=== PATIENT | female | born 1970 | race Caucasian/White ===

== ENCOUNTER → 2020-03-09 11:33 | Outpatient (CLI) | payer BC, SELFPAY ==
[2020-03-09 14:07] LABS: Coronavirus 19 IgG Antibody Positive (Negative); Coronavirus 19 IgM Antibody Negative (Negative)
[2020-03-10 14:01] LABS: Covid-19 Nasal PCR Sendout Lex Positive
== END ==
PROVIDERS: PCP Family Medicine; Visit Provider Nurse Practitioner
DX: U07.1 COVID-19 (principal)
CPT/HCPCS: 86328; U0004

== ENCOUNTER → 2020-03-19 11:47 | Outpatient (CLI) | payer BC, SELFPAY | PROVIDERS: PCP Family Medicine; Visit Provider Nurse Practitioner | DX: Z20.828 Contact with and (suspected) exposure to other viral communicable diseases (principal); U07.1 COVID-19 | CPT/HCPCS: U0003 ==

== ENCOUNTER → 2020-04-02 12:23 | Outpatient (CLI) | payer BC, SELFPAY ==
[2020-04-04 07:29] LABS: Covid-19 Nasal PCR Sendout Lex Not Detected
== END ==
PROVIDERS: PCP Family Medicine; Visit Provider Nurse Practitioner
DX: Z03.818 Encounter for observation for suspected exposure to other biological agents ruled out (principal)
CPT/HCPCS: U0004

== ENCOUNTER → 2021-08-09 12:01 | Outpatient (CLI) | payer BC, SELFPAY | PROVIDERS: PCP Family Medicine; Visit Provider Nurse Practitioner | DX: U07.1 COVID-19 (principal) | CPT/HCPCS: C9803; U0003; U0005 ==

== ENCOUNTER 2021-11-14 10:07 | Emergency (ER) | payer BC, SELFPAY ==
[2021-11-14 10:08] VITALS: BP 123/79; PULSE 76; RESP 16; TEMP 36.9; O2SAT 100; BMI 30.9
--- NOTE | 2021-11-14 10:23 | PC.NURSE ---
at [facility]
--- NOTE | 2021-11-14 10:30 | HMH.EDDIZZ ---
ED Disposition Clinical Impression: Vertigo, peripheral Qualifiers: Laterality: unspecified laterality Qualified Code(s): H81.399 - Other peripheral vertigo, unspecified ear Disposition: Home, Self-Care Condition on Discharge: Fair Instructions: Vertigo, DI for Benign Paroxysmal Positional Vertigo Additional Instructions: Return immediately to the emergency department if you develop any new symptoms such as slurred speech or weakness in your arms or legs or face. Also come back to the emergency department if your voice changes in any way. Also, if you develop a headache, return to the emergency department immediately. Follow-up with your primary care physician and or an clinical research scientist within 3 to 4 days if your symptoms do not improve. Prescriptions: Scopolamine 1 each TD Q3D PRN #2 patch PRN Reason: Vertigo Transmission Status: Pending to [facility] Referrals: Bret Chavez MD [Primary Care Provider] - - Critical Care Critical Care Time: No Attestation: On , the high probability of a clinically significant, sudden or life threatening deterioration of the following system(s) required my full and direct attention, intervention and personal management. The time I documented below is in addition to time spent performing reported procedures but includes the following listed in this critical care notation. Medical Decision Making - Medical Records Medical records reviewed: Yes: I reviewed the patient's medical records. - Raul Inquiry Pt receiving controlled substance: No Vital Signs: 11/14/21 10:08 Temperature 98.4 F Temperature Source Oral Pulse Rate [Left Radial] 76 Respiratory Rate 16 Blood Pressure [Left Arm] 123/79 Blood Pressure Mean [Left Arm] 93 Blood Pressure Source [Left Arm] Automatic Cuff Blood Pressure Position [Left Arm] Sitting 02 Sat by Pulse Oximetry 100 Oxygen Delivery Method Room Air Medical Decision Narrative: The patient presents to the emergency department complaining of acute sudden onset vertigo. There is began at rest. It is not associated with any other neurologic symptoms. Her neurologic exam is completely normal with the exception of vertigo when she moves her head. There is no evidence of stroke. The patient has normal speech. In the absence of other neurologic findings, the likelihood of cerebrovascular accident is extremely low. Therefore a CT of the head is not indicated at this time. The patient will be treated symptomatically with scopolamine and Phenergan. I feel that the patient can be safely discharged home without any lab work or and or imaging. Dizzy HPI - General Chief Complaint: Dizziness Stated Complaint: dizzy, lightheaded, vomiting, hot flashes, shaking Time Seen by Provider: 11/14/21 10:30 Mode of Arrival: Ambulatory Source of Information: Patient, Spouse Limitations: No Limitations Description of Symptoms (Recalled from ER Triage Doc. by RN): Pt c/o dizziness and nausea with any movement, especially when turning her head from side to side. Advises that it woke her up in the middle of the night and has been intermittent since. - History of Present Illness HPI Narrative: The patient presents to the emergency department complaining of dizziness that began 2 AM today. The patient denies any other neurologic symptoms. She complains of some nausea associated with the dizziness. She has had a similar episode in the past several years ago which was diagnosed as vertigo. The symptoms are fatigable. They are worse with movement of the head. They are also worse with change in position. MD complaint: dizziness - Related Data Home Medications Medication Instructions Recorded Confirmed levonorgestrel 20 mcg/24 hours (7 INTRAUTERI 09/09/19 09/09/19 yrs) 52 mg intrauterine device topiramate 100 mg capsule,extended 100 mg PO DAILY 09/09/19 09/09/19 release 24 hr Previous Rx's Medication Instructions R
[2021-11-14 11:00] VITALS: BP 136/87; PULSE 68; RESP 14; TEMP 36.7; O2SAT 98
== END 2021-11-14 11:04 | disposition home or self-care (01) ==
PROVIDERS: Emergency Provider Emergency Medicine; PCP Family Medicine
DX: H81.399 Other peripheral vertigo, unspecified ear (principal); R11.2 Nausea with vomiting, unspecified; E89.0 Postprocedural hypothyroidism; Z87.891 Personal history of nicotine dependence; Z80.9 Family history of malignant neoplasm, unspecified; Z83.3 Family history of diabetes mellitus
CPT/HCPCS: 99282

== ENCOUNTER → 2021-11-19 07:53 | Outpatient (CLI) | payer BC, SELFPAY ==
--- NOTE | 2021-11-19 07:53 | MM_ITS ---
PROCEDURE INFORMATION: Exam: Bilateral Screening 3D Mammography Exam date and time: 11/19/2021 8:00 AM Age: 51 years old Clinical indication: Screening. Possible family history of grandmother with breast cancer. TECHNIQUE: Imaging protocol: Bilateral Screening tomosynthesis and 2D mammography including computer-aided detection (CAD) when performed. COMPARISON: No relevant prior studies available.If prior mammograms are provided, I am happy to add an addendum. FINDINGS: MAMMOGRAPHY: Breast composition: The breasts are heterogeneously dense, which may obscure small masses. Mass: Possible 0.6 cm oval mass, left breast, inner lower quadrant, middle 3rd, implant displaced CC and implant displaced MLO views. Architectural distortion: None. Calcifications: No suspicious calcifications. Asymmetric density: None. Skin thickening: None. Axillary adenopathy: None. Implants: Prepectoral silicone implants bilaterally, contours unremarkable. Capsular calcification on the left. IMPRESSION: Patient to be recalled for left diagnostic spot compression in CC and MLO views as well as left breast ultrasound for further evaluation of possible left breast mass. ASSESSMENT: BI-RADS Category 0: Incomplete- Need Additional Imaging Evaluation and/or Prior Mammograms for Comparison
== END ==
PROVIDERS: PCP Family Medicine; Visit Provider Obstetrics & Gynecology
DX: Z12.31 Encounter for screening mammogram for malignant neoplasm of breast (principal)
CPT/HCPCS: 77063; 77067

== ENCOUNTER → 2021-12-30 14:27 | Outpatient (CLI) | payer BC, OTHER, SELFPAY ==
--- NOTE | 2021-12-30 14:28 | MM_ITS ---
PROCEDURE INFORMATION: Exam: US Left Breast, Complete MG Left Diagnostic Breast Tomosynthesis Exam date and time: 12/30/2021 2:25 PM Age: 51 years old Clinical indication: Patient recalled for further evaluation of a questionable left breast mass TECHNIQUE: Imaging protocol: Complete ultrasound of all four quadrants of the Left breast and the retroareolar regions, including ultrasound of the axilla when performed. Left Diagnostic tomosynthesis and 2D mammography including computer-aided detection (CAD) when performed. Unilateral or bilateral exam. COMPARISON: 1. MG MM DIG SC MAMM IMPLANT BI CAD 11/19/2021 8:00 AM 2. MG MA D BS, EXTENDED TIME 09/20/2016 2:51 PM FINDINGS: MAMMOGRAPHY: Digital diagnostic spot compression views of the left breast demonstrate normal overlapping fibroglandular structures without persistent mass or asymmetry identified. ULTRASOUND: Sonographic images of the left breast including the retroareolar region, all 4 quadrants and the axilla do not demonstrate any solid masses. Few scattered predominantly subcentimeter cysts are noted. There is a dominant 1.1 cm lower outer quadrant cyst. No architectural distortion or acoustical shadowing. No skin thickening or axillary adenopathy. IMPRESSION: No mammographic or sonographic evidence of malignancy. Annual bilateral mammographic screening is recommended unless otherwise clinically indicated. ASSESSMENT: BI-RADS Category 2: Benign
== END ==
PROVIDERS: PCP Family Medicine; Visit Provider Obstetrics & Gynecology
DX: R92.8 Other abnormal and inconclusive findings on diagnostic imaging of breast (principal)
CPT/HCPCS: 76641; 77061; 77065; G0279

== ENCOUNTER → 2023-07-24 15:04 | Outpatient (CLI) | payer OTHER, SELFPAY ==
--- NOTE | 2023-07-24 15:09 | MM_ITS ---
PROCEDURE INFORMATION: Exam: MG Bilateral Screening 3D Mammography Exam date and time: 07/24/2023 3:00 PM Age: 53 years old Clinical indication: Screening examination TECHNIQUE: Imaging protocol: Bilateral Screening tomosynthesis and 2D mammography including computer-aided detection (CAD) when performed. COMPARISON: 1. MG MM DIG MAMM DX UNILAT LT CAD 12/30/2021 2:25 PM 2. MG MM DIG SC MAMM IMPLANT BI CAD 11/19/2021 8:00 AM FINDINGS: MAMMOGRAPHY: Breast composition: There are scattered areas of fibroglandular density. Mass: None. Architectural distortion: None. Calcifications: No suspicious calcifications. Asymmetric density: None. Skin thickening: None. Axillary adenopathy: None. Implants: Prepectoral silicone breast implants are present. The contours are smooth. IMPRESSION: No mammographic evidence of malignancy. Annual screening is recommended unless otherwise clinically indicated. ASSESSMENT: BI-RADS Category 1: Negative
== END ==
PROVIDERS: PCP Nurse Practitioner; Visit Provider Obstetrics & Gynecology
DX: Z12.31 Encounter for screening mammogram for malignant neoplasm of breast (principal)
CPT/HCPCS: 77063; 77067

== ENCOUNTER 2023-07-28 08:34 | Day surgery (SDC) | payer OTHER, SELFPAY ==
[2023-07-26 09:37] VITALS: BMI 28.3
[2023-07-28] MEDS: LACTATED RINGERS 1000ML 1,000 ML 25 ML IV (08:47)
[2023-07-28 08:51] VITALS: BP 130/78; PULSE 100; RESP 18; TEMP 36.6; O2SAT 98
--- NOTE | 2023-07-28 09:17 | P.PNANES_ITS ---
[facility] Disclaimer: The information contained in this section may have been updated after the patient was seen, as this information can be updated by other users. Medical History History of basal cell carcinoma (BCC) of skin History of goiter History of PSVT (paroxysmal supraventricular tachycardia) Migraine headache Vitamin D deficiency Surgical History History of arthroscopy of right shoulder (~2020) History of breast augmentation History of cholecystectomy History of subtotal thyroidectomy Family History Other No significant family history Social History Smoking Status: Former smoker alcohol intake: current substance use type: denies use current occupational status: employed and other Travel in the last 8 weeks: None [facility] Anesthesia Checklist Patient Identification Patient Identification: Arm Band Structural Data Admitted From: Home Planned Operative Procedure/s: colonoscopy Consent for Planned Operative Procedure(s) Verified: Yes Verified Documents: Surgical Consent and History and Physical NPO Status Verified Time NPO: 00:00 Additional verifications Anesthesia Reactions: No Airway Assessment Mallampati Score:: Class II C-Spine Mobility Assessed: Yes TMJ Mobility Assessed: Yes Dentition: Good Dentition Neurological Assessment Level of Consciousness: Awake and Alert Anesthesia Plan Anesthesia Risk discussed: Yes Anesthesia Plan: Verified ASA Class: II Anesthesia Type: MAC
[2023-07-28 09:26] LABS: Urine Pregnancy, HCG Qual. Negative (Negative)
[2023-07-28 09:29] VITALS: O2SAT 100
[2023-07-28 09:55] VITALS: BP 91/55; PULSE 79; RESP 16; TEMP 36.1; O2SAT 98
--- NOTE | 2023-07-28 09:57 | HMH.SCOPE ---
Procedure: Date: 07/28/23 Patient Date of :: 1970 Procedure Performed:: Total colonoscopy to terminal ileum Indications:: Patient is a pleasant 53-year-old female scheduled for initial screening colonoscopy. Performing Provider:: Kei Hu MD Referring Provider:: Eusebia Perrin MD Sedation:: MAC sedation Procedure:: Patient history was obtained and appropriate physical examination was performed. Patient's medications and allergies were reviewed. Informed consent was obtained after explaining the benefits, alternatives, and risks of the procedure including, but not limited to, bleeding, perforation, missed lesions, and adverse reaction to anesthesia medications. Patient was transported to endoscopy procedure room. Patient was connected to monitoring devices. Throughout the procedure the patient's blood pressure, pulse, and oxygen saturations were monitored continuously. Patient identification and planned procedure were verified by the staff. Patient was positioned in lateral decubitus position. Digital anorectal exam was performed. Variable stiffness Olympus colonoscope was inserted and advanced under direct visualization to the cecum. Adequacy of the colonic preparation was noted. The colonoscope was advanced a short distance into the terminal ileum. The colonoscope was then slowly withdrawn while carefully examining the color, texture, anatomy, and integrity of the mucosoa circumferentially. Within the rectum retroflexion was performed. Colonoscope was then withdrawn. . Preparation was good. She did have some atony of the sigmoid colon. There were a few sigmoid diverticuli. She had some nonpathologic nonbleeding internal hemorrhoid cushions. . Findings:: Minimal sigmoid diverticuli Nonpathologic hemorrhoid cushions Recommendations:: Likely repeat colonoscopy 5 to 7 years given this to be her initial screening colonoscopy Complications:: None immediately apparent Estimated blood obtained (mL): 0 Colonoscopy Component Colonoscopy Component Was a colonoscopy performed during today's procedure?: Yes Recommended follow up colonoscopy of at least 10 years?: No If no, follow up colonoscopy recommended in ___ years?: 7 Reason for not recommending >/= 10 yr follow-up interval?: See above
[2023-07-28 10:05] VITALS: BP 103/64; PULSE 74; RESP 18; O2SAT 97
[2023-07-28 10:15] VITALS: BP 120/71; PULSE 77; RESP 18; O2SAT 97
[2023-07-28 10:25] VITALS: BP 111/75; PULSE 76; RESP 16; O2SAT 98
== END 2023-07-28 10:30 | disposition home or self-care (01) ==
PROVIDERS: PCP Nurse Practitioner; Visit Provider Surgery
PROC: 0DJD8ZZ Inspection of Lower Intestinal Tract, Via Natural or Artificial Opening Endoscopic (ICD-10-PCS; CPT 45378; principal; 2023-07-28 09:30)
DX: Z12.11 Encounter for screening for malignant neoplasm of colon (principal); K57.30 Diverticulosis of large intestine without perforation or abscess without bleeding; K64.9 Unspecified hemorrhoids
CPT/HCPCS: 45378; 81025

== ENCOUNTER 2024-10-29 14:17 | Outpatient (CLI) | payer BC, SELFPAY ==
--- NOTE | 2024-10-29 14:17 | MM_ITS ---
PROCEDURE INFORMATION: Exam: MG Bilateral Screening 3D Mammography Exam date and time: 10/29/2024 2:25 PM Age: 54 years old Clinical indication: Screening examination TECHNIQUE: Imaging protocol: Bilateral Screening tomosynthesis and 2D mammography including computer-aided detection (CAD) when performed. COMPARISON: 1. MG MM DIG SC MAMM IMPLANT BI CAD 07/24/2023 3:00 PM 2. MG MM DIG MAMM DX UNILAT LT CAD 12/30/2021 2:25 PM FINDINGS: MAMMOGRAPHY: Breast composition: There are scattered areas of fibroglandular density. Mass: None. Architectural distortion: None. Calcifications: No suspicious calcifications. Asymmetric density: None. Skin thickening: None. Axillary adenopathy: None. Implants: Prepectoral silicone breast implants are present. Contour abnormality is noted along the right medial implant . The left implant contour appears smooth and unchanged IMPRESSION: 1. Interval development of a contour abnormality of the right prepectoral silicone implant. Ultrasound can be performed for further evaluation of implant integrity. 2. Annual bilateral mammographic screening is recommended unless otherwise clinically indicated. ASSESSMENT: BI-RADS Category 2: Benign.
== END 2024-10-29 23:59 | disposition home or self-care (01) ==
LOC: RAD 14:17
PROVIDERS: PCP Nurse Practitioner; Visit Provider Obstetrics & Gynecology
DX: Z12.31 Encounter for screening mammogram for malignant neoplasm of breast (principal)
CPT/HCPCS: 77063; 77067